=== PATIENT | female | born 1960 | race Caucasian/White ===

== ENCOUNTER → 2019-03-19 | Day surgery (SDC) | payer OTHER ==
[~2019-03-19] MED LIST: CRESTOR10 MG PO; ESTRADIOL1 MG PO; FELODIPINE ER2.5 MG PO; FENTANYL CITRATE/PF 100MCG/2 ML INJ ONE; GLUCAGON FOR INJ 1 MG VIAL ONE; HUMULIN-R100 UNITS/; HYOSCYAMINE 0.125 MG TAB ONE; KETAMINE HCL INJ 50 MG/ML 10 ML VIAL ONE; LEVOXYL25 MCG PO; METOCLOPRAMIDE HCL 10 MG/2ML VIAL ONE; MIDAZOLAM HCL 2 MG/2 ML VIAL ONE; NORCO 5-325 TA1 EACH PO; ONDANSETRON HCL INJ 2MG/ML 2ML 2 MG/ML VIAL ONE; PRAVASTATIN SOD10 MG PO; PROMETHAZINE HCL (IM) 25 MG/ML VIAL ONE; PROPOFOL IV EMULSION 10 MG/ML 50 ML VIAL ONE; SYNTHROID50 MCG PO; VITAMIN D34000 UNIT PO; ZOLOFT100 MG PO; [UNRECOGNIZED DRUG - OTHER]
[2019-03-19 17:30] VITALS: BP 122/86
[2019-03-19 17:51] LABS: WBC,FECAL (FECAL LACTOFERRIN) NEGATIVE (NEGATIVE)
[2019-03-20 12:22] LABS: C DIFFICILE TOXIN A&B AMP PROB NEGATIVE (NEGATIVE)
--- NOTE | 2019-05-20 08:15 | Operative Report ---
DATE OF PROCEDURE: SURGEON: Dillon Hilliard MD PROCEDURES: Esophagogastroduodenoscopy with biopsies and esophageal dilatation and a colonoscopy with polypectomy. INDICATIONS FOR EGD: Dysphagia, nausea, and vomiting. INDICATIONS FOR COLONOSCOPY: Colorectal cancer screening, intermittent diarrhea. MEDICATIONS: The patient was done under MAC. Please see anesthesiologist's note. PROCEDURE IN DETAIL: With the patient in left lateral decubitus position, flexible fiberoptic Olympus gastroscope was introduced into the esophagus under direct visualization without any difficulty. There was some patchy erythema noted in distal esophagus. A mild stricture was noted at the GE junction that was dilated to size 52-[place] Aranda. The scope was then advanced with ease into the stomach. Mucosa overlying the antrum and the body revealed some patchy erythema, [id number] edema, and biopsies were obtained and sent to stain for H. pylori. The pylorus was of normal contour and shape was intubated with ease and the scope was advanced all the way to the second portion of the duodenum. Biopsies were obtained from the proximal second portion as well as the duodenal bulb to rule out sprue. The scope was then withdrawn back into the stomach and retroflexed mucosa overlying the fundus and cardia appeared to be within normal limits. The scope was then straightened out. It was subsequently withdrawn. The patient tolerated the procedure well. IMPRESSION: 1. Distal esophagitis. 2. Esophageal stricture at the GE junction dilated to size 52-[place] Ar[place]. 3. Gastritis, biopsied. Biopsies sent to stain for H. pylori. 4. Rule out sprue. PLAN: Follow up histology. Initiate Protonix 40 mg one p.o. q.a.m. a.c. The patient was then turned around. After adequate lubrication of the anal canal, a flexible fiberoptic Olympus colonoscope was inserted into the rectum with ease and advanced all the way to the cecum. It was then withdrawn slowly. Mucosa overlying the cecum appeared to be within normal limits. An approximately 8 mm sessile polyp in the ascending colon was removed per snare electrocautery and site was hemoclipped. The rest of the ascending and transverse colon appeared to be within normal limits. Approximately 1 cm polyp sessile descending colon removed per snare electrocautery and site was hemoclipped. There was some patchy mild inflammatory changes noted in the left colon and random biopsies were obtained. One polyp was hot biopsied from the sigmoid colon. The scope was then retroflexed into the distal rectum and small internal hemorrhoids were noted none of which was actively bleeding. The scope was then straightened out and it was subsequently withdrawn after securing an adequate stool specimen that was sent for the appropriate stool studies. The patient tolerated the procedure well. IMPRESSION: 1. Ascending colon polyp removed per snare electrocautery and site hemoclipped. 2. Approximately 1 cm polyp sessile descending colon snared and site was hemoclipped. 3. Mild patchy left-sided colitis. 4. Sigmoid colon polyp hot biopsied. 5. Internal hemorrhoids, none actively bleeding. PLAN: Follow up histology. Follow up stool studies. Initiate Bentyl 10 mg one p.o. t.i.d. and align one p.o. b.i.d. The patient might benefit from a followup colonoscopy in 2 to 3 years. Dillon Hilliard MD [facility] [place]/[facility] /[id number] cc: Michael Hilliard MD
== END | disposition home or self-care (01) ==
LOC: OR 11:57
PROVIDERS: ATTEND Internal Medicine Gastroenterology
DX: D12.2 Benign neoplasm of ascending colon (principal); D12.4 Benign neoplasm of descending colon; D12.5 Benign neoplasm of sigmoid colon; K29.70 Gastritis, unspecified, without bleeding; K22.2 Esophageal obstruction; K20.9 Esophagitis, unspecified; K51.50 Left sided colitis without complications; K21.9 Gastro-esophageal reflux disease without esophagitis; K59.00 Constipation, unspecified; L29.0 Pruritus ani; K64.8 Other hemorrhoids; E03.9 Hypothyroidism, unspecified; I00 Rheumatic fever without heart involvement; E11.9 Type 2 diabetes mellitus without complications; F32.9 Major depressive disorder, single episode, unspecified; F41.9 Anxiety disorder, unspecified; Z88.0 Allergy status to penicillin; Z01.810 Encounter for preprocedural cardiovascular examination; Z79.4 Long term (current) use of insulin
CPT/HCPCS: 36415; 43239; 43450; 45384; 45385; 82948; 83630; 83993; 87045; 87177; 87328; 87493; 93005; J1610; J2250; J2405; J2550; J2704; J2765; J3010